=== PATIENT | male | born 1955 | race Caucasian/White ===

== ENCOUNTER 2021-10-28 12:11 | Inpatient (IN) | payer BC, MEDICARE ==
[~2021-10-28] VITALS: Ht 177.8 cm; Wt 117.8 kg
[2021-10-28] VITALS (34 sets, daily range): BP systolic 89–121; BP diastolic 49–81
[2021-10-28] MEDS ORDERED: DOPamine 1600MCG/ML D5W 250 ML IV ONE (12:16)
[2021-10-28] MEDS ORDERED: CLOPIDOGREL BISULFATE 75 MG TAB PO ONE (12:30)
[2021-10-28] MEDS ORDERED: NITROGLYCERIN 50MG/250ML 250 ML IV ONE (12:30)
[2021-10-28] MEDS ORDERED: HEPARIN SODIUM (PORCINE) 5000 UNITS/ML 1ML VIAL IV ONE ×2 (12:30→14:30)
[2021-10-28 12:50] LABS: Basophils # (auto) 0.1 10 ^3/uL (0-0.2); Basophils % (auto) 0.5 % (0.0-2.0); Eosinophils # (auto) 0.1 10 ^3/uL (0-0.8); Hematocrit 49.2 % (41.0-53.0); Hemoglobin 16.2 g/dL (13.5-17.5); Lymphocytes % (auto) 45.3 % (10.0-50.0); Mean Corpuscular Hemoglobin 31.3 pg (28.0-32.0); Mean Corpuscular Volume 94.7 fL (80.0-100.0); Monocytes # (auto) 0.8 10 ^3/uL (0-1.3); Monocytes % (auto) 7.5 % (0.0-12.0); Neutrophils # (auto) 5.1 10 ^3/uL (1.6-8.6); Neutrophils % (auto) 45.7 % (37.0-80.0); Nucleated Red Blood Cells % 0.1 %; Red Blood Cells 5.19 10^6/uL (4.5-5.90); Red Cell Distribution Width 13.4 % (11.8-14.3); White Blood Cell 11.1 10^3/uL (4.4-10.8)
[2021-10-28] MEDS ORDERED: MIDAZOLAM DRIP 50 mg/50mL 50 ML IV ONE (12:52)
[2021-10-28] MEDS ORDERED: NOREPINEPHRINE 8 MG/250ML KIT 250 ML IV ONE (12:58)
[2021-10-28] MEDS ORDERED: MIDAZOLAM DRIP 50 mg/50mL 50 ML IV SCH (13:00)
[2021-10-28 13:05] LABS: Albumin 3.5 g/dL (3.4-5.0); Calcium 8.1 mg/dL (8.5-10.1); Potassium 3.8 mmol/L (3.5-5.1)
[2021-10-28 13:08] LABS: BUN/Creatinine Ratio 10.3; Magnesium 2.9 mg/dL (1.6-2.6)
[2021-10-28 13:09] LABS: Partial Thromboplastin Time 27.7 sec (24.6-33.4)
[2021-10-28] MEDS: MIDAZOLAM DRIP 50 mg/50mL 50 ML IV SCH ×2 (13:15→19:58)
[2021-10-28 13:18] LABS: Bilirubin, Total 0.6 mg/dL (0.2-1.0); Total Protein 7.4 g/dL (6.4-8.2)
[2021-10-28] MEDS ORDERED: IOHEXOL 300 MG/ML 100ML BOTTLE IJ ONE (13:23)
[2021-10-28] MEDS: NOREPINEPHRINE 8 MG/250ML KIT 250 ML IV SCH ×2 (14:15→23:27)
[2021-10-28 14:29] LABS: Urine Bacteria FEW /hpf (None Seen); Urine Blood 3+ /uL (Negative); Urine Mucus FEW (None Seen); Urine WBC 72 /hpf (0 - 3)
[2021-10-28] MEDS ORDERED: metroNIDAZOLE 500MG/100ML 100 ML IV ONE (14:30)
[2021-10-28] MEDS ORDERED: PIPERACILLIN-TAZO 4.5GM 100 ML IV ONE (14:30)
[2021-10-28] MEDS ORDERED: VANCOMYCIN PER PHARMACY 0 MG IV SCH (14:30)
[2021-10-28] MEDS ORDERED: VANCOMYCIN 1GM/250ML 250 ML IV ONE (14:45)
[2021-10-28 14:46] LABS: Alcohol, Urine < 3.0 mg/dL (0-10); Amphetamine Screen, Urine NEGATIVE (NEGATIVE); Barbiturate Scree,Urine NEGATIVE (NEGATIVE); Benzodiazephine Screen, Urine NEGATIVE (NEGATIVE); Cannabinoid Screen, Urine NEGATIVE (NEGATIVE); Cocaine Screen, Urine NEGATIVE (NEGATIVE); Opiate Scree,Urine NEGATIVE (NEGATIVE); Phencyclidine Screen, Urine NEGATIVE (NEGATIVE)
[2021-10-28] MEDS: HEPARIN DRIP/D5W 100UNITS/ML 250 ML IV SCH (14:47)
[2021-10-28] MEDS ORDERED: fentaNYL CITRATE 100 MCG/2 ML VL ONE (14:51)
[2021-10-28] MEDS ORDERED: ANGIOMAX 250 MG VIAL IV ONE (14:51)
[2021-10-28] MEDS ORDERED: LIDOCAINE 2%HCL (LOCAL ANESTH.) INJ 10ml MDV ONE (14:55)
[2021-10-28] MEDS ORDERED: IODIXANOL 320MG/ML 100ML BTL IV ONE (14:55)
[2021-10-28] MEDS ORDERED: SODIUM CHL 0.9% 50 ML ONE (15:15)
[2021-10-28] MEDS ORDERED: SODIUM CHLORIDE 0.9% 1,000 ML IV SCH (15:15)
[2021-10-28] MEDS ORDERED: HYDR-4902 PO (15:42)
[2021-10-28] MEDS ORDERED: niCARdipine 25 MG/10 ML VIAL IV ONE (15:48)
[2021-10-28] MEDS ORDERED: ATROPINE SULF 1 MG/10ml SYR ONE (16:03)
[2021-10-28] MEDS ORDERED: EPTIFIBATIDE DRIP(0.75MG/ML) 100 ML IV ONE ×2 (16:30→17:42)
[2021-10-28] MEDS ORDERED: fentaNYL Drip 2500mCg/250mlNS 250 ML IV ONE (16:52)
[2021-10-28] MEDS ORDERED: PROPOFOL 100 ML IV ONE (18:03)
[2021-10-28] MEDS: fentaNYL Drip 2500mCg/250mlNS 250 ML IV SCH (19:19)
[2021-10-28 21:07] LABS: INR 1.09 (0.9-1.15); Partial Thromboplastin Time 29.6 sec (24.6-33.4)
[2021-10-28] MEDS ORDERED: SODIUM BICARBONATE 8.4 % INJ 50ML VIAL IV ONE (21:44)
[2021-10-28] MEDS: SOD CHL 0.45% 1,000 ML IV SCH (22:05)
[2021-10-28] MEDS: PANTOPRAZOLE 40 MG/10 ML VIAL INJ IV SCH (22:13)
[2021-10-28] MEDS: PIPERACILLIN-TAZOB 3.375GM 100 ML IV SCH (22:16)
[2021-10-29] VITALS (104 sets, daily range): BP systolic 94–143; BP diastolic 59–86
[2021-10-29] MEDS: MIDAZOLAM DRIP 50 mg/50mL 50 ML IV SCH ×2 (00:44→09:48)
[2021-10-29 02:55] LABS: INR 1.14 (0.9-1.15)
[2021-10-29 03:11] LABS: Partial Thromboplastin Time 131.6 sec (24.6-33.4)
[2021-10-29] MEDS: SOD CHL 0.45% 1,000 ML IV SCH (03:30)
[2021-10-29 04:27] LABS: BUN/Creatinine Ratio 12.4; Calcium 7.9 mg/dL (8.5-10.1); Potassium 4.9 mmol/L (3.5-5.1)
[2021-10-29] MEDS: PIPERACILLIN-TAZOB 3.375GM 100 ML IV SCH ×3 (06:00→21:32)
[2021-10-29] MEDS ORDERED: MORPHINE SULFATE INJ 2 MG/ml SYRG IV PRN (06:00)
[2021-10-29] MEDS ORDERED: NITROGLYCERIN 0.4 MG SL TAB SL PRN (06:00)
[2021-10-29] MEDS: fentaNYL Drip 2500mCg/250mlNS 250 ML IV SCH (06:07)
[2021-10-29] MEDS: NOREPINEPHRINE 8 MG/250ML KIT 250 ML IV SCH ×2 (06:14→14:50)
[2021-10-29] MEDS ORDERED: ENOXAPARIN SOD 40 MG/0.4 ML SYRINGE SC SCH (10:00)
[2021-10-29] MEDS: PANTOPRAZOLE 40 MG/10 ML VIAL INJ IV SCH ×2 (10:28→21:32)
[2021-10-29] MEDS: ASPirin-EC 81 mg tab PO SCH (10:28)
[2021-10-29] MEDS ORDERED: SODIUM BICARBONATE 50ML VIAL 100 ML in SOD CHL 0.45% 1,000 ML IV SCH (10:45)
[2021-10-29] MEDS ORDERED: VANCOMYCIN 1GM/250ML 250 ML IV ONE (14:45)
[2021-10-29] MEDS: HEPARIN DRIP/D5W 100UNITS/ML 250 ML IV SCH (14:48)
[2021-10-29 15:02] LABS: Basophils # (auto) 0 10 ^3/uL (0-0.2); Basophils % (auto) 0.1 % (0.0-2.0); Eosinophils # (auto) 0 10 ^3/uL (0-0.8); Hematocrit 44.2 % (41.0-53.0); Hemoglobin 14.7 g/dL (13.5-17.5); Lymphocytes # (auto) 1.5 10 ^3/uL (0.4-5.4); Lymphocytes % (auto) 9.2 % (10.0-50.0); Mean Corpuscular Hemoglobin 30.3 pg (28.0-32.0); Mean Corpuscular Hgb Conc. 33.3 g/dL (32.0-36.0); Mean Corpuscular Volume 90.9 fL (80.0-100.0); Monocytes # (auto) 1.2 10 ^3/uL (0-1.3); Monocytes % (auto) 7.3 % (0.0-12.0); Neutrophils # (auto) 13.4 10 ^3/uL (1.6-8.6); Neutrophils % (auto) 83.4 % (37.0-80.0); Red Blood Cells 4.86 10^6/uL (4.5-5.90); Red Cell Distribution Width 13.6 % (11.8-14.3); White Blood Cell 16.1 10^3/uL (4.4-10.8)
[2021-10-29] MEDS: SODIUM BICARBONATE 50ML VIAL 100 ML in SOD CHL 0.45% 1,000 ML IV SCH (17:18)
[2021-10-29] MEDS: ACETAMINOPHEN 500 MG TAB PO PRN (18:24)
[2021-10-29] MEDS: SODIUM CHLOR 0.9% PF (SALINE LOCK) 10ML VIAL/SYR IV SCH (21:40)
[2021-10-30] VITALS (106 sets, daily range): BP systolic 96–148; BP diastolic 63–104
[2021-10-30] MEDS: SODIUM BICARBONATE 50ML VIAL 100 ML in SOD CHL 0.45% 1,000 ML IV SCH (01:09)
[2021-10-30] MEDS: NOREPINEPHRINE 8 MG/250ML KIT 250 ML IV SCH (01:11)
[2021-10-30] MEDS: ACETAMINOPHEN 500 MG TAB PO PRN ×3 (01:52→17:24)
[2021-10-30 04:05] LABS: Basophils # (auto) 0 10 ^3/uL (0-0.2); Basophils % (auto) 0.3 % (0.0-2.0); Eosinophils # (auto) 0 10 ^3/uL (0-0.8); Hematocrit 39.1 % (41.0-53.0); Hemoglobin 13.5 g/dL (13.5-17.5); Lymphocytes # (auto) 0.8 10 ^3/uL (0.4-5.4); Lymphocytes % (auto) 7.8 % (10.0-50.0); Mean Corpuscular Hgb Conc. 34.5 g/dL (32.0-36.0); Mean Corpuscular Volume 89.9 fL (80.0-100.0); Monocytes # (auto) 0.9 10 ^3/uL (0-1.3); Monocytes % (auto) 9.2 % (0.0-12.0); Neutrophils # (auto) 8.3 10 ^3/uL (1.6-8.6); Neutrophils % (auto) 82.7 % (37.0-80.0); Red Blood Cells 4.34 10^6/uL (4.5-5.90); Red Cell Distribution Width 13.6 % (11.8-14.3)
[2021-10-30 05:07] LABS: Albumin 2.5 g/dL (3.4-5.0); BUN/Creatinine Ratio 13.6; Calcium 7.9 mg/dL (8.5-10.1); Potassium 3.6 mmol/L (3.5-5.1)
[2021-10-30 05:10] LABS: Bilirubin, Total 1.2 mg/dL (0.2-1.0); Total Protein 5.7 g/dL (6.4-8.2)
[2021-10-30] MEDS: PIPERACILLIN-TAZOB 3.375GM 100 ML IV SCH ×3 (06:16→22:24)
[2021-10-30] MEDS: ASPirin-EC 81 mg tab PO SCH (09:52)
[2021-10-30] MEDS: PANTOPRAZOLE 40 MG/10 ML VIAL INJ IV SCH ×2 (09:52→22:23)
[2021-10-30] MEDS: SODIUM CHLOR 0.9% PF (SALINE LOCK) 10ML VIAL/SYR IV SCH ×2 (09:53→22:24)
[2021-10-30] MEDS ORDERED: VANCOMYCIN 1GM/250ML 250 ML IV ONE (12:00)
[2021-10-30] MEDS: MIDAZOLAM DRIP 50 mg/50mL 50 ML IV SCH ×3 (12:21→21:08)
[2021-10-30] MEDS ORDERED: Jevity 1.2 Cal/Fiber 1 Liter GT SCH (14:00)
[2021-10-30] MEDS: fentaNYL Drip 2500mCg/250mlNS 250 ML IV SCH (15:06)
[2021-10-31] VITALS (101 sets, daily range): BP systolic 94–134; BP diastolic 59–92
[2021-10-31] MEDS: fentaNYL Drip 2500mCg/250mlNS 250 ML IV SCH (02:52)
[2021-10-31] MEDS: PIPERACILLIN-TAZOB 3.375GM 100 ML IV SCH (05:53)
[2021-10-31 05:58] LABS: Basophils # (auto) 0 10 ^3/uL (0-0.2); Basophils % (auto) 0.3 % (0.0-2.0); Eosinophils # (auto) 0.1 10 ^3/uL (0-0.8); Eosinophils % (auto) 1.1 % (0.0-7.0); Hematocrit 37.6 % (41.0-53.0); Lymphocytes # (auto) 1.2 10 ^3/uL (0.4-5.4); Lymphocytes % (auto) 13.6 % (10.0-50.0); Mean Corpuscular Hemoglobin 31.7 pg (28.0-32.0); Mean Corpuscular Hgb Conc. 34.6 g/dL (32.0-36.0); Mean Corpuscular Volume 91.4 fL (80.0-100.0); Monocytes # (auto) 0.8 10 ^3/uL (0-1.3); Monocytes % (auto) 9.1 % (0.0-12.0); Neutrophils # (auto) 6.5 10 ^3/uL (1.6-8.6); Neutrophils % (auto) 75.9 % (37.0-80.0); Red Blood Cells 4.11 10^6/uL (4.5-5.90); Red Cell Distribution Width 13.8 % (11.8-14.3); White Blood Cell 8.5 10^3/uL (4.4-10.8)
[2021-10-31 06:09] LABS: Calcium 8.5 mg/dL (8.5-10.1); Potassium 3.9 mmol/L (3.5-5.1)
[2021-10-31] MEDS: PANTOPRAZOLE 40 MG/10 ML VIAL INJ IV SCH ×2 (09:44→21:47)
[2021-10-31] MEDS: ASPirin-EC 81 mg tab PO SCH (09:44)
[2021-10-31] MEDS: SODIUM CHLOR 0.9% PF (SALINE LOCK) 10ML VIAL/SYR IV SCH ×2 (09:44→21:47)
[2021-10-31] MEDS: ACETAMINOPHEN 500 MG TAB PO PRN (09:45)
[2021-10-31] MEDS ORDERED: VANCOMYCIN 1,500 MG in D5W 5% 250 ML IV ONE (12:00)
[2021-10-31] MEDS ORDERED: IPRATROPIUM BROM 0.5 MG/2.5ML INH SOL NEB SCH (12:00)
[2021-10-31] MEDS ORDERED: ALBUTEROL SULF 2.5 MG/0.5ML(0.5%) NEB SOLN NEB SCH (12:00)
[2021-10-31] MEDS: NOREPINEPHRINE 8 MG/250ML KIT 250 ML IV SCH (13:00)
[2021-10-31] MEDS: MIDAZOLAM DRIP 50 mg/50mL 50 ML IV SCH (13:01)
[2021-10-31] MEDS: IPRATROPIUM BROM 0.5 MG/2.5ML INH SOL NEB SCH ×2 (14:15→17:44)
[2021-10-31] MEDS: ALBUTEROL SULF 2.5 MG/0.5ML(0.5%) NEB SOLN NEB SCH ×2 (14:15→17:44)
[2021-10-31] MEDS: CEFEPIME 1GM/ 50ML 50 ML IV SCH (21:47)
[2021-11-01] VITALS (79 sets, daily range): BP systolic 82–117; BP diastolic 49–78
[2021-11-01] MEDS: ALBUTEROL SULF 2.5 MG/0.5ML(0.5%) NEB SOLN NEB SCH ×2 (00:24→06:35)
[2021-11-01] MEDS: IPRATROPIUM BROM 0.5 MG/2.5ML INH SOL NEB SCH ×2 (00:24→06:35)
[2021-11-01 04:14] LABS: BUN/Creatinine Ratio 20.3; Calcium 8.3 mg/dL (8.5-10.1); Potassium 3.6 mmol/L (3.5-5.1)
[2021-11-01] MEDS: CEFEPIME 1GM/ 50ML 50 ML IV SCH ×2 (05:32→13:38)
[2021-11-01] MEDS: ASPirin-EC 81 mg tab PO SCH (10:42)
[2021-11-01] MEDS: SODIUM CHLOR 0.9% PF (SALINE LOCK) 10ML VIAL/SYR IV SCH (10:42)
[2021-11-01] MEDS: PANTOPRAZOLE 40 MG/10 ML VIAL INJ IV SCH (10:42)
[2021-11-01] MEDS: NOREPINEPHRINE 8 MG/250ML KIT 250 ML IV SCH (13:00)
[2021-11-01] MEDS: MIDAZOLAM DRIP 50 mg/50mL 50 ML IV SCH (13:15)
[2021-11-01] MEDS ORDERED: VANCOMYCIN 500 MG in D5W 5% 100 ML IV ONE (14:00)
[2021-11-01] MEDS ORDERED: LORazepam 2MG/ML-1ML VIAL IV PRN (14:30)
[2021-11-01] MEDS: MORPHINE SULFATE INJ 2 MG/ml SYRG IV PRN ×3 (14:48→18:35)
== END 2021-11-01 20:46 | DRG 250 ==
LOC: ER 12:11 → EDBD 12:11 → CATH 1 14:43 → ICU WEST 18:30
PROVIDERS: ADMIT Specialist; ATTEND Internal Medicine
PROC: 5A1955Z Respiratory Ventilation, Greater than 96 Consecutive Hours (ICD-10-PCS; principal; 2021-10-28)
PROC: 02703ZZ Dilation of Coronary Artery, One Artery, Percutaneous Approach (ICD-10-PCS; 2021-10-28)
PROC: 02C03ZZ Extirpation of Matter from Coronary Artery, One Artery, Percutaneous Approach (ICD-10-PCS; 2021-10-28)
PROC: 0BH17EZ Insertion of Endotracheal Airway into Trachea, Via Natural or Artificial Opening (ICD-10-PCS; 2021-10-28)
PROC: 4A023N7 Measurement of Cardiac Sampling and Pressure, Left Heart, Percutaneous Approach (ICD-10-PCS; 2021-10-28)
PROC: B211YZZ Fluoroscopy of Multiple Coronary Arteries using Other Contrast (ICD-10-PCS; 2021-10-28)
PROC: B41FYZZ Fluoroscopy of Right Lower Extremity Arteries using Other Contrast (ICD-10-PCS; 2021-10-28)
PROC: 5A12012 Performance of Cardiac Output, Single, Manual (ICD-10-PCS; 2021-10-28)
DX: I21.19 ST elevation (STEMI) myocardial infarction involving other coronary artery of inferior wall (principal); G93.41 Metabolic encephalopathy; J96.01 Acute respiratory failure with hypoxia; G93.6 Cerebral edema; J69.0 Pneumonitis due to inhalation of food and vomit; R40.20 Unspecified coma; N17.0 Acute kidney failure with tubular necrosis; G93.1 Anoxic brain damage, not elsewhere classified; J98.11 Atelectasis; R65.10 Systemic inflammatory response syndrome (SIRS) of non-infectious origin without acute organ dysfunction; I46.9 Cardiac arrest, cause unspecified; E66.01 Morbid (severe) obesity due to excess calories; G47.10 Hypersomnia, unspecified; I12.9 Hypertensive chronic kidney disease with stage 1 through stage 4 chronic kidney disease, or unspecified chronic kidney disease; N18.30 Chronic kidney disease, stage 3 unspecified; E78.5 Hyperlipidemia, unspecified; R73.9 Hyperglycemia, unspecified; R57.0 Cardiogenic shock; Z51.5 Encounter for palliative care; I25.2 Old myocardial infarction; Z82.0 Family history of epilepsy and other diseases of the nervous system; Z85.528 Personal history of other malignant neoplasm of kidney; Z90.5 Acquired absence of kidney; Z68.37 Body mass index [BMI] 37.0-37.9, adult
CPT/HCPCS: 31500; 36415; 36569; 36600; 70450; 71045; 71260; 72125; 74177; 80048; 80053; 80202; 80307; 81001; 82805; 82962; 83735; 83880; 84484; 85025; 85379; 85610; 85730; 86850; 86900; 86901; 87040; 87070; 87081; 87205; 93005; 93306; 94003; 94640; 95819; 96365; 99152; 99153; 99291; A4618; C9113; G0378; J2001; J2250; J2543; J2704; J7060; Q9967